=== PATIENT | male | born 1995 | race Caucasian/White ===

== ENCOUNTER 2024-10-13 06:09 | Outpatient (CLI) | payer SELFPAY ==
[2024-10-13] MEDS ORDERED: GADOTERATE MEGLUMINE 7.5 MMOL/15 ML VIAL IV ONE (06:36)
[2024-10-13] MEDS ORDERED: LIDOcaine 1% 30ml preserv. free vial ONE (06:36)
[2024-10-13] MEDS ORDERED: iohexol 300 MG/1 ML 50ml polymer ONE (06:36)
[2024-10-13] MEDS ORDERED: LIDOcaine 1%/PF 5ML 10 MG/ML VIAL ONE (06:36)
== END 2024-10-13 23:59 | disposition home or self-care (01) ==
LOC: RAD 06:09 → EDBD 06:09 → RAD 23:59
PROVIDERS: ATTEND Family Medicine Sports Medicine
DX: M25.552 Pain in left hip (principal); M25.851 Other specified joint disorders, right hip
CPT/HCPCS: 27093; 73722; 77002; A9575; J2003; J3490; Q9967

== ENCOUNTER 2024-12-11 08:11 | Outpatient (CLI) | payer SELFPAY ==
[2024-12-11] MEDS ORDERED: iohexol 300mg/ml 100ml inj. ONE (09:25)
== END 2024-12-11 23:59 | disposition home or self-care (01) ==
LOC: RAD 08:11
PROVIDERS: ATTEND Family Medicine Sports Medicine
DX: S76.019A Strain of muscle, fascia and tendon of unspecified hip, initial encounter (principal); M25.552 Pain in left hip; S73.199A Other sprain of unspecified hip, initial encounter; X58.XXXA Exposure to other specified factors, initial encounter; Y93.89 Activity, other specified; Y92.89 Other specified places as the place of occurrence of the external cause; Y99.8 Other external cause status
CPT/HCPCS: 73701; Q9967